=== PATIENT | female | born 1995 | race Caucasian/White ===

== ENCOUNTER 2024-07-05 05:00 | Emergency (ER) | payer OTHER ==
[2024-07-05 05:04] VITALS: BMI 29.2
[2024-07-05] MEDS ORDERED: DIPHTH,PERTUSS(ACELL),TET 0.5 ML DISP.SYRIN IM ONE (06:05)
[2024-07-05] MEDS: DIPHTH,PERTUSS(ACELL),TET 0.5 ML DISP.SYRIN IM ONE (06:17)
[2024-07-05] MEDS: LIDOCAINE HCL 2% (50ML VIAL) SQ ONE (07:58)
[2024-07-05] MEDS ORDERED: LIDOCAINE HCL 2% (20ML MULTI-DOSE VIAL) ONE (09:07)
[2024-07-05] MEDS ORDERED: ACETAMINOPHEN 325 MG TABLET (FP) ONE (09:07)
[2024-07-05] MEDS: ACETAMINOPHEN 500 MG TABLET (FP) PO ONE (09:12)
[2024-07-05 09:14] VITALS: BP 133/79; PULSE 102; RESP 16; TEMP 98.4
== END 2024-07-05 09:15 | disposition home or self-care (01) ==
LOC: JER 05:00
PROC: 0HQ1XZZ Repair Face Skin, External Approach (ICD-10-PCS; principal; 2024-07-05)
PROC: 3E0234Z Introduction of Serum, Toxoid and Vaccine into Muscle, Percutaneous Approach (ICD-10-PCS; 2024-07-05)
DX: S01.81XA Laceration without foreign body of other part of head, initial encounter (principal); W01.110A Fall on same level from slipping, tripping and stumbling with subsequent striking against sharp glass, initial encounter; Z23 Encounter for immunization
CPT/HCPCS: 12011-25; 70450-TC; 70486-TC; 72125-TC; 90471; 90715; 99284-25